=== PATIENT | female | born 1960 | race Caucasian/White ===

== ENCOUNTER 2018-01-15 10:00 | Outpatient (RCR) ==
--- NOTE | 2018-01-14 15:41 | RS.OPPTEV2 ---
Date of Note: 01/13/18 Visit #: 1 Date of Evaluation: 01/13/18 Payer Source: Insurance Surgery Performed?: No Treatment Diagnosis: spinal stenosis of lumbar region, bulging lumbar disc History of Condition/Mechanism of Injury:: pt states her LBP began 09/2017 and has continued to worsen. Prior Level of Function.....Patient was independent with: ADL's, Self Care, Ambulation/Mobility, Community Integration/Access Functional Limitations: Reaching, Pushing, Pulling, Lifting, Carrying, Standing , Bending, Squatting, Ambulation, Community Access/Integration Current Subjective/complaints:: pt states her LBP has continued to worsen. pt c/ o pain radiating into buttocks and post thigh. States she has an appt. with neurosurgeon on 01/20/18. Treatment Side (optional): N/A *Precautions: n/a Medical History Medical History: Hypertension, Arthritis Surgical History: Cervical Spine, Hysterectomy, Smoking Status: Never smoker Diagnostic Testing/Imaging:: degenerative changes, most significant at L4-5 where there is spondylolisthesis, spinal stenosis, and bilateral foraminal narrowing. Hx Home Medications: bystolic, losartan, aspirin, mobic, calcium, Patient's Goals: decrease pain Pain Assessment - Pain Description Pain Location: lumbar radiating into buttocks and posterior thighs. Pain Description: Radiating Current Pain Intensity: 7/10 Worst Pain Intensity: 10 Functional Outcome Measure Oswestry LBP: 33 (66%) - G Codes & Severity Modifier G Codes & Modifier: n/a Source of G Code score: n/a Observation - Observation Posture: Forward Head, Rounded Shoulders, Increased Thoracic Kyphosis, Decreased Lumbar Lordosis Gait - Gait Pattern Gait Comments: pt amb with guarded posture. General Range of Motion: BUE and BLE WFL's Muscle Strength: BUE 5/5. BLE 5/5 - ROM Lumbar Flexion: Hand reach to Mid-Shins Sidebending to Left: Reach to Lateral Joint Line Sidebending to Right: Reach to Lateral Joint Line Lumbar Spine ROM Limitations: Soft Tissue Tightness, Muscle Weakness, Pain Comments: pt with significant tightness B hamstrings L worse than R. - Special Tests SLR Test: Positive Left, Positive Right Seated Dural Stretch Test: Positive Left, Positive Right SI Joint Compression: Negative Palpation Palpation Findings: Tenderness, Muscle Guarding (pt presents with tenderness as well as muscle guarding lumbar paraspinals, lower lumbar/sacral area) Sensation - Sensation Right Upper Extremity: Intact/Normal Left Upper Extremity: Intact/Normal Right Lower Extremity: Impaired Left Lower Extremity: Impaired (pt with radicular pain BLE with occasional numbness and tingling in feet) Balance - Sitting Balance Static Sitting Balance: Normal Dynamic Sitting Balance: Normal - Standing Balance Static Standing Balance: Normal Dynamic Standing Balance: Normal - Treatment Modality: Electrical Stim Unattended Parameters/Method Applied: IFC x 20 mins at 14ma Treatment Area: lumbar area Patient Position: Left Sidelying - Heat/Cryotherapy Treatment: Cryotherapy Comments:: lumbar area Interventions - Exercise/Activities/Manual Therapy Exercises/Activities: pt performed isometric hip add, resisted hip flex, resisted hip abd with blue theraband, hamstring stretch Manual Therapy: n/a HOME EXERCISE PROGRAM: pt given written HEP including isometric hip add, resisted hip abd with blue tband, resisted hip flex, hamstring stretch. - Charges Timed Code Treatment Minutes: 53 Total Treatment Time: 65 Procedures billed for this date of service:: eval med EVALUATION COMPLEXITY LEVEL EVALUATION COMPLEXITY LEVEL: HISTORY: Low (htn, oa), EXAM OF BODY SYSTEMS: Medium (pain, muscle tightness, ROM, ), CLINICAL PRESENTATION: Medium (evolving) , CLINICAL DECISION MAKING: Medium Assessment Assessment: pt presents with low back pain radiating into buttocks and B post thigh. pt with significant tightness B hamstrings L worse than R. pt with muscle tightness and trigger points noted in lumbar area. pt with increased pain with extention. 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 Goal to be met by: 02/03/18 Goal #2: Hamstring length WFL's Goal to be met by: 02/03/18 Goal #3: pt amb community distances with decreased pain Goal to be met by: 02/03/18 Goal #4: pt with no reports of radiating pain into LE's Goal to be met by: 02/03/18 Plan - Treatment to be Provided Procedures: Therapeutic Exercises, Therapeutic Activity, Neuromuscular Rehab, Manual Therapy, Massage, Patient Education Modalities: Electrical Stimulation, Ultrasound/Phonophoresis, Class IV Laser, Cryotherapy, Hot Packs, Mechanical Traction - Treatment Plan Frequency: 2-3x a week Duration: 3 weeks ORDER # VISITS AND/OR THROUGH DATE: 02/03/18 - Treatment Code (1) Low back pain Code(s): M54.5 - LOW BACK PAIN Qualifiers: Chronicity: chronic Back pain laterality: unspecified Sciatica presence: with sciatica Sciatica laterality: bilateral sciatica Qualified Code(s): M54.41 - Lumbago with sciatica, right side; M54.42 - Lumbago with sciatica, left side; G89.29 - Other chronic pain (2) Spinal stenosis of lumbar region Code(s): M48.06 - SPINAL STENOSIS, LUMBAR REGION * DO NOT USE * Qualifiers: Neurogenic claudication status: unspecified Qualified Code(s): M48.061 - Spinal stenosis, lumbar region without neurogenic claudication (3) Bulging lumbar disc Code(s): M51.26 - OTHER INTERVERTEBRAL DISC DISPLACEMENT, LUMBAR REGION
--- NOTE | 2018-01-15 14:54 | RS.OPPTDN ---
Subjective Date of Note: 01/15/18 Visit #: 2 Date of Evaluation: 01/13/18 Payer Source: Insurance Treatment Diagnosis: spinal stenosis of lumbar region, bulging lumbar disc Current Subjective/complaints:: Patient says she had some increase in soreness in her back, but later she says she felt good the rest of the day. *Precautions: n/a Pain Assessment - Pain Description Pain Location: lumbar paraspinals - Treatment Modality: Electrical Stim Unattended Parameters/Method Applied: IFC @ 13 ma x 20 mins to lumbar paraspinals 4 small pads Patient Position: Left Sidelying - Heat/Cryotherapy Treatment: Hot Pack Interventions - Exercise/Activities/Manual Therapy Exercises/Activities: Patient begins with passive stretching bilaterally: SKTC , HS, Piriformis, Figure 4, and lower trunk rotation x 3. Patient begins with isometric hip flexion/abd, lower ab crunch (LE)lift x 5, QS, pillow squeeze x 10 ea. Total minutes of Exercise: 20 Manual Therapy: n/a HOME EXERCISE PROGRAM: pt given written HEP including isometric hip add, resisted hip abd with blue tband, resisted hip flex, hamstring stretch. - Charges Timed Code Treatment Minutes: 20 Total Treatment Time: 40 Procedures billed for this date of service:: hp, estim (un), ex Assessment: Patient receiving temporary relief currently, but this is only her 2nd visit. She is attentive and motivated to continue to strengthen and utilize modialties to assist with pain level. She demo tightness with fig 4 stretches and hamstrings. 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 Goal to be met by: 02/03/18 Goal #2: Hamstring length WFL's Goal to be met by: 02/03/18 Goal #3: pt amb community distances with decreased pain Goal to be met by: 02/03/18 Goal #4: pt with no reports of radiating pain into LE's Goal to be met by: 02/03/18 Plan PLAN OF CARE EXPIRES ON:: 02/03/18 ORDER # VISITS AND/OR THROUGH DATE: 02/03/18 PLAN: Patient to continue for modalities and therex
== END 2018-01-15 23:59 ==
PROVIDERS: ATTEND Family Medicine
DX: M48.061 Spinal stenosis, lumbar region without neurogenic claudication (principal); M51.26 Other intervertebral disc displacement, lumbar region

== ENCOUNTER 2018-02-02 10:00 | Outpatient (RCR) ==
--- NOTE | 2018-01-19 14:55 | RS.OPPTDN ---
Subjective Date of Note: 01/19/18 Visit #: 3 Date of Evaluation: 01/13/18 Payer Source: Insurance Treatment Diagnosis: spinal stenosis of lumbar region, bulging lumbar disc Current Subjective/complaints:: Patient says she believes that therapy is helping and is hopeful that her referred MD (DR. Cordoba) will recommend continuing PT. She says she has been performing HEP consistently and is able to see improvement with stretching. *Precautions: n/a - Treatment Modality: Electrical Stim Unattended Parameters/Method Applied: IFC @ 16 pk volts 4 small pads x 20 mins to bilateral lumbar paraspinals and SI joint Patient Position: Left Sidelying - Heat/Cryotherapy Treatment: Hot Pack (with estim) Interventions - Exercise/Activities/Manual Therapy Exercises/Activities: Patient begins with passive stretching bilaterally: SKTC , HS, Piriformis, Figure 4, and lower trunk rotation x 3. Patient begins with isometric hip flexion/abd, lower ab crunch (LE)lift x 5, QS, pillow squeeze 2 x 10 ea. SLR 2x8. Total minutes of Exercise: 22 Manual Therapy: n/a HOME EXERCISE PROGRAM: pt given written HEP including isometric hip add, resisted hip abd with blue tband, resisted hip flex, hamstring stretch. - Charges Timed Code Treatment Minutes: 22 Total Treatment Time: 42 Procedures billed for this date of service:: hp, estim (un), ex Assessment: Patient has verbalized improvement with 3 approved visits. She is compliant with HEP and motivated to further progress with PT. Marguerite continues to demo some limitation with HS length and with hip external rotators. Mild to moderate pain exists to the lumbar region extending to the ischial tuberosities , which she describes as a "catch" upon sit to stand. She has been referred to Dr. Cordoba and will be seeing him tomorrow. Patient understands that this is her final approved session and she will need to have an order from Dr. Matute to continue therapy or discharge and re-eval under Dr. Cordoba. 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 Goal to be met by: 02/03/18 Goal #2: Hamstring length WFL's Goal to be met by: 02/03/18 Goal #3: pt amb community distances with decreased pain Goal to be met by: 02/03/18 Goal #4: pt with no reports of radiating pain into LE's Goal to be met by: 02/03/18 Plan PLAN OF CARE EXPIRES ON:: 02/03/18 ORDER # VISITS AND/OR THROUGH DATE: 02/03/18 PLAN: Patient to see Dr. Cordoba tomorrow.
--- NOTE | 2018-01-22 11:35 | RS.OPPTDN ---
Subjective Date of Note: 01/22/18 Visit #: 4 Date of Evaluation: 01/13/18 Payer Source: Insurance Treatment Diagnosis: spinal stenosis of lumbar region, bulging lumbar disc Current Subjective/complaints:: Patient says she is glad to have continued PT, but is a little nervous about impending surgery. *Precautions: n/a Pain Assessment - Pain Description Pain Location: R lumbar paraspinals > L - Treatment Modality: Electrical Stim Unattended Parameters/Method Applied: IFC @ 10 ma 4 small pads x 20 mins to the lumbar paraspinals Patient Position: Left Sidelying - Heat/Cryotherapy Treatment: Hot Pack (with estim) Interventions - Exercise/Activities/Manual Therapy Exercises/Activities: Patient begins with passive stretching bilaterally: SKTC , HS, Piriformis, Figure 4, and lower trunk rotation x 3. Patient performs isometric hip flexion/abd, lower ab crunch (LE)lift x 5, QS, pillow squeeze 2 x 10 ea. SLR 2x8. Total minutes of Exercise: 22 Manual Therapy: n/a HOME EXERCISE PROGRAM: pt given written HEP including isometric hip add, resisted hip abd with blue tband, resisted hip flex, hamstring stretch. - Charges Timed Code Treatment Minutes: 22 Total Treatment Time: 42 Procedures billed for this date of service:: hp, estim (un), ex Assessment: Patient is scheduled for surgical intervention 02/06/18, but is to continue therapy until that point. She is motivated to continue in order to gain strength and reduce pain. She is able to cristofer all therex today with no c/o except for slight soreness with L trunk rotation. 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 Goal to be met by: 02/03/18 Goal #2: Hamstring length WFL's Goal to be met by: 02/03/18 Goal #3: pt amb community distances with decreased pain Goal to be met by: 02/03/18 Goal #4: pt with no reports of radiating pain into LE's Goal to be met by: 02/03/18 Plan PLAN OF CARE EXPIRES ON:: 02/03/18 ORDER # VISITS AND/OR THROUGH DATE: 02/03/18 PLAN: continue until 02/06/18
--- NOTE | 2018-01-26 11:01 | RS.OPPTDN ---
Subjective Date of Note: 01/26/18 Visit #: 5 Date of Evaluation: 01/13/18 Payer Source: Insurance Treatment Diagnosis: spinal stenosis of lumbar region, bulging lumbar disc Current Subjective/complaints:: Patient reports a catch that is intermittent to the L hip/SI region. She says she is performing all HEP at this time. Reports that this pain moves sometimes from the L to R. She feels she is gaining flexibility to the LE/back. *Precautions: n/a - Treatment Modality: Ultrasound Parameters/Method Applied: continuous @ 1.5 w/cm2 x 12 mins bilateral lumbar paraspinals and L SI joint Patient Position: Right Sidelying - Heat/Cryotherapy Treatment: Hot Pack (over the low back and over the L SI joint in supine) Interventions - Exercise/Activities/Manual Therapy Exercises/Activities: Patient begins with passive stretching bilaterally: SKTC , HS, Piriformis, Figure 4, and lower trunk rotation x 3. Patient performs isometric hip flexion/abd, lower ab crunch (LE)lift x 10, QS, bridging, pillow squeeze 2 x 10 ea. SLR 2x8. Total minutes of Exercise: 18 Manual Therapy: n/a HOME EXERCISE PROGRAM: pt given written HEP including isometric hip add, resisted hip abd with blue tband, resisted hip flex, hamstring stretch. - Charges Timed Code Treatment Minutes: 30 Total Treatment Time: 45 Procedures billed for this date of service:: hp, u/s, ex Assessment: Patient progressing with improved HS and piriformis flexibility. Modified treatment to u/s today to verify any decrease in "catch" pain as well as continuing with pelvic stability to assist with L SI joint pain. Patient leaves dept denying this original feeling and pain. 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 Goal to be met by: 02/06/18 Goal #2: Hamstring length WFL's Goal to be met by: 02/06/18 Goal #3: pt amb community distances with decreased pain Goal to be met by: 02/06/18 Goal #4: pt with no reports of radiating pain into LE's Goal to be met by: 02/06/18 Plan PLAN OF CARE EXPIRES ON:: 02/06/18 ORDER # VISITS AND/OR THROUGH DATE: 02/06/18 PLAN: Patient to continue until 02/06/18 per MD to prepare for surgery.
--- NOTE | 2018-01-30 10:44 | RS.OPPTDN ---
Subjective Date of Note: 01/30/18 Visit #: 6 Date of Evaluation: 01/13/18 Payer Source: Insurance Treatment Diagnosis: spinal stenosis of lumbar region, bulging lumbar disc Current Subjective/complaints:: Patient says she feels the u/s may have helped soothe her pain more at last session. She denies "catch" feeling today and mentions she was able to go to the local [place]berry [place] to pick a few pounds worth. *Precautions: n/a - Treatment Modality: Ultrasound Parameters/Method Applied: continuous @ 1.5 w/cm2 x 12 mins to bilateral lumbar paraspinals and SI joint, but more focus onto the R side. Patient Position: Left Sidelying - Heat/Cryotherapy Treatment: Hot Pack (mid to low back and hips in supine x 20 mins) Interventions - Exercise/Activities/Manual Therapy Exercises/Activities: Patient begins with passive stretching bilaterally: SKTC , HS, Piriformis, Figure 4, and lower trunk rotation x 3. Patient performs isometric hip flexion/abd, lower ab crunch (LE)lift x 10, QS, bridging, pillow squeeze 2 x 10 ea. SLR 2x10. Total minutes of Exercise: 17 Manual Therapy: n/a HOME EXERCISE PROGRAM: pt given written HEP including isometric hip add, resisted hip abd with blue tband, resisted hip flex, hamstring stretch. - Charges Timed Code Treatment Minutes: 29 Total Treatment Time: 49 Procedures billed for this date of service:: hp, u/s, ex Assessment: Patient cristofer increased resistance with all isometrics. She is experiencing less pain to the R SI although, pain does move. 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 Goal to be met by: 02/06/18 Progress towards goal: Progressing Goal #2: Hamstring length WFL's Goal to be met by: 02/06/18 Progress towards goal: Progressing Goal #3: pt amb community distances with decreased pain Goal to be met by: 02/06/18 Progress towards goal: Progressing Goal #4: pt with no reports of radiating pain into LE's Goal to be met by: 02/06/18 Plan PLAN OF CARE EXPIRES ON:: 02/06/18 ORDER # VISITS AND/OR THROUGH DATE: 02/06/18 PLAN: Patient has had pre op work in preparation for upcoming surgery next Friday. Therefore, she will only be attending twice next week.
--- NOTE | 2018-02-02 11:58 | RS.OPPTDN ---
Subjective Date of Note: 02/02/18 Visit #: 7 Date of Evaluation: 01/13/18 Payer Source: Insurance Treatment Diagnosis: spinal stenosis of lumbar region, bulging lumbar disc Current Subjective/complaints:: Patient says she wants to use today as her final visit. She says she is not seeing much relief other than temporary, but also anticipating surgery this week. Location remains at the L buttock and SI joint. *Precautions: n/a Pain Assessment - Pain Description Pain Location: 6/10 L SI, buttock mostly - Treatment Modality: Ultrasound Parameters/Method Applied: continuous @ 1.5 w/cm2 x 10 mins L lumbar paraspinals /SI joint and lower R lumbar paraspinals Patient Position: Left Sidelying - Heat/Cryotherapy Treatment: Hot Pack (mid to low back in supine x 20 mins) Interventions - Exercise/Activities/Manual Therapy Exercises/Activities: Patient begins with passive stretching bilaterally: SKTC , HS, Piriformis, Figure 4, and lower trunk rotation x 3. Patient performs isometric hip flexion/abd, lower ab crunch (LE)lift x 10, QS, bridging, pillow squeeze 2 x 10 ea. SLR 2x10. REassessment completed. Total minutes of Exercise: 13 Manual Therapy: n/a HOME EXERCISE PROGRAM: pt given written HEP including isometric hip add, resisted hip abd with blue tband, resisted hip flex, hamstring stretch. - Charges Timed Code Treatment Minutes: 23 Total Treatment Time: 43 Procedures billed for this date of service:: hp, u/s, ex Assessment: Patient has demo 2 areas of improvement per Oswestry LBP Scale including: slight decrease in cristofer to sitting/standing resulting in score of 31 ot 62% impairment. 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 Goal to be met by: 02/06/18 Progress towards goal: Progressing Goal #2: Hamstring length WFL's Goal to be met by: 02/06/18 Progress towards goal: Progressing Goal #3: pt amb community distances with decreased pain Goal to be met by: 02/06/18 Progress towards goal: Progressing Goal #4: pt with no reports of radiating pain into LE's Goal to be met by: 02/06/18 Plan PLAN OF CARE EXPIRES ON:: 02/06/18 ORDER # VISITS AND/OR THROUGH DATE: 02/06/18 PLAN: Patient will be having surgery this Friday and self discharges today in preps for procedure.
--- NOTE | 2018-02-12 15:45 | RS.QUICKDC ---
Discharge from PT Date of Discharge: 02/12/18 Number of Visits: 7 Reason for Discharge: Patient attended for treatment for her low back and L SI joint. Patient was instructed in beginning PT until her surgical date with Dr. Cordoba. She received heat, ultrasound, estim, and therex of stretching and trunk stability/general LE strengthening. She received a HEP and instruction on body mechanics and posture. Patient was pleased with having temporary pain reduction and was consistent with HEP. She had surgery on 02/04/18 and we contacted her to see how she was recovering. She will notify us later on in her recovery if she is ordered to come for post-op rehab.
== END 2018-02-14 23:59 ==
PROVIDERS: ATTEND Family Medicine
DX: M48.061 Spinal stenosis, lumbar region without neurogenic claudication (principal); M51.26 Other intervertebral disc displacement, lumbar region; M54.5 Low back pain; M54.42 Lumbago with sciatica, left side; M54.41 Lumbago with sciatica, right side; G89.29 Other chronic pain